=== PATIENT | male | born 1965 | race Caucasian/White ===

== ENCOUNTER → 2024-12-08 08:30 | Outpatient (REF) | payer OTHER, SELFPAY ==
[2024-12-08 09:53] LABS: Troponin I < 0.012 ng/ml
== END ==
LOC: REG 08:30
PROVIDERS: ATTENDING PHYSICIAN Internal Medicine Cardiovascular Disease; FAMILY PHYSICIAN Family Medicine
DX: R07.89 Other chest pain (principal)
CPT/HCPCS: 84484

== ENCOUNTER → 2024-12-12 11:33 | Outpatient (REF) | payer OTHER, SELFPAY | LOC: RCS 11:33 | PROVIDERS: ATTENDING PHYSICIAN Internal Medicine Cardiovascular Disease; FAMILY PHYSICIAN Family Medicine | DX: R07.89 Other chest pain (principal); R94.31 Abnormal electrocardiogram [ECG] [EKG] | CPT/HCPCS: 93017; 93350 ==